=== PATIENT | male | born 1990 | race Caucasian/White ===

== ENCOUNTER 2022-05-22 14:24 | Emergency (ER) | payer SELFPAY ==
[2022-05-22 14:59] VITALS: BP 110/45; PULSE 66; RESP 18; TEMP 98.1; BMI 26.5
[2022-05-22] MEDS ORDERED: TETRACAINE 0.5% HCL 0.6ML DROPPER.BOTTLE OD ONE (15:22)
[2022-05-22] MEDS ORDERED: FLUORESCEIN NA 1 EA STRIP OD ONE (15:22)
[2022-05-22] MEDS ORDERED: TETRACAINE 0.5% OPHTH SOLN 2 ML BOTTLE ONE (15:22)
[2022-05-22] MEDS ORDERED: FLUORESCEIN NA 1 EA STRIP ONE (15:22)
== END 2022-05-22 16:11 | disposition home or self-care (01) ==
LOC: JERFT 14:24
DX: H10.33 Unspecified acute conjunctivitis, bilateral (principal); Q18.1 Preauricular sinus and cyst; H57.13 Ocular pain, bilateral; H04.203 Unspecified epiphora, bilateral; H04.123 Dry eye syndrome of bilateral lacrimal glands
CPT/HCPCS: 99283-25

== ENCOUNTER 2022-09-03 14:59 | Emergency (ER) | payer OTHER ==
[2022-09-03 15:18] VITALS: BP 115/73; PULSE 73; RESP 115; TEMP 98.3; BMI 26.2
== END 2022-09-03 15:50 | disposition left against medical advice (07) ==
LOC: JER 14:59 → JERFT 14:59
DX: R09.81 Nasal congestion (principal)
CPT/HCPCS: 0241U-QW; 99283-25

== ENCOUNTER 2022-12-01 07:46 | Emergency (ER) | payer OTHER ==
[2022-12-01] MEDS ORDERED: IBUPROFEN 600 MG TABLET (FP) PO ONE ×3 (07:58→09:15)
[2022-12-01] MEDS ORDERED: ACETAMINOPHEN 500 MG TABLET (FP) PO ONE (07:58)
[2022-12-01] MEDS ORDERED: ACETAMINOPHEN 500 MG TABLET (FP) ONE (08:02)
[2022-12-01 08:09] VITALS: BP 133/85; PULSE 78; RESP 18; TEMP 98; BMI 26.6
== END 2022-12-01 10:04 | disposition home or self-care (01) ==
LOC: JERFT 07:46 → JER 07:46 → JERFT 10:04
DX: M25.522 Pain in left elbow (principal); W01.0XXA Fall on same level from slipping, tripping and stumbling without subsequent striking against object, initial encounter; Y99.0 Civilian activity done for income or pay
CPT/HCPCS: 73070-TC-RT-FY; 99283-25

== ENCOUNTER 2023-03-09 15:40 | Emergency (ER) | payer OTHER ==
[2023-03-09 15:57] VITALS: BP 128/80; PULSE 79; RESP 18; TEMP 98.1; BMI 26.1
[2023-03-09] MEDS ORDERED: IBUPROFEN 600 MG TABLET (FP) PO ONE (16:34)
[2023-03-09] MEDS ORDERED: KETOROLAC TROMETHAMINE 30 MG/1 ML VIAL IM ONE (17:04)
[2023-03-09] MEDS ORDERED: ACETAMINOPHEN 500 MG TABLET (FP) PO ONE (17:04)
[2023-03-09] MEDS ORDERED: KETOROLAC TROMETHAMINE 30 MG/1 ML VIAL ONE (17:08)
[2023-03-09] MEDS ORDERED: ACETAMINOPHEN 500 MG TABLET (FP) ONE (17:09)
== END 2023-03-09 18:55 | disposition home or self-care (01) ==
LOC: JER 15:40 → JERFT 15:40
PROC: 3E0233Z Introduction of Anti-inflammatory into Muscle, Percutaneous Approach (ICD-10-PCS; principal; 2023-03-09)
DX: S93.402A Sprain of unspecified ligament of left ankle, initial encounter (principal); M25.572 Pain in left ankle and joints of left foot; M25.472 Effusion, left ankle; W18.49XA Other slipping, tripping and stumbling without falling, initial encounter; Y93.89 Activity, other specified; Y92.009 Unspecified place in unspecified non-institutional (private) residence as the place of occurrence of the external cause
CPT/HCPCS: 73610-TC-LT-FY; 99284-25

== ENCOUNTER 2023-07-02 08:35 | Emergency (ER) | payer OTHER ==
[2023-07-02 08:43] VITALS: BP 137/61; PULSE 75; RESP 18; TEMP 98; BMI 28.4
[2023-07-02] MEDS ORDERED: IBUPROFEN 600 MG TABLET (FP) PO ONE (09:27)
[2023-07-02] MEDS: IBUPROFEN 600 MG TABLET (FP) PO ONE (09:59)
== END 2023-07-02 10:21 | disposition home or self-care (01) ==
LOC: JER 08:35
DX: M67.432 Ganglion, left wrist (principal); M25.432 Effusion, left wrist; M25.532 Pain in left wrist; X50.0XXA Overexertion from strenuous movement or load, initial encounter; Y99.0 Civilian activity done for income or pay
CPT/HCPCS: 73110-TC-LT-FY; 99283-25

== ENCOUNTER 2023-08-16 07:24 | Emergency (ER) | payer OTHER ==
[2023-08-16 07:33] VITALS: BP 115/71; PULSE 64; RESP 18; TEMP 98.2; BMI 26.5
[2023-08-16] MEDS ORDERED: ACETAMINOPHEN INJECTION 100 ML IVPB ONE (07:54)
[2023-08-16 08:22] LABS: BASO % 0.5 % (0-2.0); EOS % 1.2 % (0-4.5); HEMATOCRIT 41.8 % (35.4-49); HEMOGLOBIN 14.2 GM/dL (11.7-16.9); LYMPH % 38.5 % (8-40); MCH 29.4 pg (25.7-33.7); MCHC 34.1 g/dl (32.0-35.9); MEAN CELL VOLUME 86.3 fl (80-96); MEAN PLT VOLUME 9.9 fl (7.5-11.1); MONO % 7.7 % (3.8-10.2); NEUT % 52.1 % (42.8-82.8); PLATELET COUNT 214 10^3/uL (134-434); RBC 4.85 M/mm3 (4.00-5.60); RDW 13.4 % (11.9-15.9); WHITE BLOOD COUNT 7.3 K/mm3 (4.0-10.0)
[2023-08-16] MEDS: SODIUM CHLORIDE 0.9% 500 ML INFUS.BAG IV ONE (08:22)
[2023-08-16] MEDS: ACETAMINOPHEN 1000 MG/100 ML BAG IVPB ONE (08:22)
[2023-08-16 08:36] LABS: POTASSIUM 3.9 mmol/L (3.5-5.1)
[2023-08-16 08:37] LABS: CALCIUM 9.5 mg/dL (8.5-10.1)
[2023-08-16 08:39] LABS: BLOOD UREA NITROGEN 15.4 mg/dL (7-18); MAGNESIUM 2.3 mg/dL (1.8-2.4)
[2023-08-16 08:42] LABS: CREATININE 1.2 mg/dL (0.55-1.3)
[2023-08-16 08:43] LABS: BILIRUBIN,TOTAL 0.4 mg/dL (0.2-1); TOT PROT 7.6 g/dl (6.4-8.2)
[2023-08-16 09:58] LABS: INR 0.92 (0.83-1.09); PROTHROMBIN TIME (PATIENT) 10.4 SEC (9.7-13.0)
== END 2023-08-16 10:30 | disposition home or self-care (01) ==
LOC: JER 07:24
PROC: 3E033NZ Introduction of Analgesics, Hypnotics, Sedatives into Peripheral Vein, Percutaneous Approach (ICD-10-PCS; principal; 2023-08-16)
DX: R07.89 Other chest pain (principal)
CPT/HCPCS: 36415; 71046-TC-FY; 80053; 83735; 84443; 84484; 85025; 85610; 85730; 93005; 93010; 99285-25; J0131